=== PATIENT | female | born 1975 | race Caucasian/White ===

== ENCOUNTER 2017-04-18 15:24 | Emergency (ER) | payer MEDICARE | END 2017-04-18 20:25 | disposition home or self-care (01) | LOC: ER 15:24 | DX: F15.10 Other stimulant abuse, uncomplicated (principal); F13.10 Sedative, hypnotic or anxiolytic abuse, uncomplicated; F12.10 Cannabis abuse, uncomplicated; Z88.6 Allergy status to analgesic agent | CPT/HCPCS: 36415; 51701; 80307; G0480 ==